=== PATIENT | male | born 1995 | race Caucasian/White ===

== ENCOUNTER 2018-03-21 18:46 | Emergency (ER) | payer OTHER ==
[~2018-03-21] VITALS: Ht 177.8 cm; Wt 70.8 kg
[~2018-03-21 18:46] MED LIST: Amoxil400 MG/5 M PO; CEPH500 PO; CRUTCH4 UD; CYCL10 PO; IBUP600 PO; IBUP800 PO; Keflex500 MG PO; MAGIC MOUTHWASH; METPRE4DP PO; Naprosyn500 MG PO; OXYACE5T PO; Veetids 500500 MG PO
[2018-03-21] MEDS ORDERED: Desyrel50 MG PO (20:23)
== END 2018-03-21 20:30 | disposition home or self-care (01) ==
LOC: ER 18:46
DX: F41.9 Anxiety disorder, unspecified (principal); G47.00 Insomnia, unspecified; F43.9 Reaction to severe stress, unspecified; F17.210 Nicotine dependence, cigarettes, uncomplicated
CPT/HCPCS: 99283

== ENCOUNTER 2019-02-18 15:35 | Emergency (ER) | payer OTHER ==
[~2019-02-18] VITALS: Ht 175.3 cm; Wt 65.8 kg
[~2019-02-18 15:35] MED LIST changes: +Desyrel50 MG PO; +HYDHCL25 PO; +TRIA15CR3 TOP
[2019-02-18] MEDS ORDERED: Vistaril25 MG PO (18:16)
== END 2019-02-18 19:22 | disposition home or self-care (01) ==
LOC: ER 15:35
DX: F41.0 Panic disorder [episodic paroxysmal anxiety] (principal); F17.210 Nicotine dependence, cigarettes, uncomplicated
CPT/HCPCS: 36415; 84484; 93005; 93010; 96374; 99285-25; J2060

== ENCOUNTER 2019-05-09 15:19 | Emergency (ER) | payer OTHER ==
[~2019-05-09] VITALS: Ht 177.8 cm; Wt 65.8 kg
[~2019-05-09 15:19] MED LIST changes: +Vistaril25 MG PO
== END 2019-05-09 17:30 | disposition home or self-care (01) ==
LOC: ER 15:19
DX: M94.0 Chondrocostal junction syndrome [Tietze] (principal); F17.210 Nicotine dependence, cigarettes, uncomplicated
CPT/HCPCS: 71046; 99283-25

== ENCOUNTER 2019-05-12 22:06 | Emergency (ER) | payer OTHER ==
[~2019-05-12] VITALS: Ht 177.8 cm; Wt 68.0 kg
[2019-05-12] MEDS ORDERED: IBUP600 PO (22:30)
== END 2019-05-12 22:46 | disposition home or self-care (01) ==
LOC: ER 22:06
DX: M94.0 Chondrocostal junction syndrome [Tietze] (principal); F17.210 Nicotine dependence, cigarettes, uncomplicated
CPT/HCPCS: 96372; 99283-25; J1885

== ENCOUNTER 2019-05-13 16:30 | Emergency (ER) | payer OTHER ==
[~2019-05-13] VITALS: Ht 177.8 cm; Wt 68.0 kg
== END 2019-05-13 16:56 | disposition home or self-care (01) ==
LOC: ER 16:30
DX: S29.012A Strain of muscle and tendon of back wall of thorax, initial encounter (principal); F17.210 Nicotine dependence, cigarettes, uncomplicated; Z79.899 Other long term (current) drug therapy; X50.9XXA Other and unspecified overexertion or strenuous movements or postures, initial encounter
CPT/HCPCS: 99281

== ENCOUNTER 2019-08-17 12:10 | Emergency (ER) | payer SELFPAY ==
[~2019-08-17] VITALS: Ht 177.8 cm; Wt 68.0 kg
[2019-08-17] MEDS ORDERED: PENVK500 PO (12:48)
== END 2019-08-17 13:09 | disposition home or self-care (01) ==
LOC: ER 12:10
DX: J02.0 Streptococcal pharyngitis (principal); Z87.891 Personal history of nicotine dependence
CPT/HCPCS: 87430; 99282; J1100

== ENCOUNTER 2019-11-02 10:22 | Emergency (ER) | payer SELFPAY ==
[~2019-11-02] VITALS: Ht 180.3 cm; Wt 72.6 kg
[~2019-11-02 10:22] MED LIST changes: +PENVK500 PO
== END 2019-11-02 10:51 | disposition home or self-care (01) ==
LOC: ER 10:22
DX: L23.7 Allergic contact dermatitis due to plants, except food (principal); Z87.891 Personal history of nicotine dependence
CPT/HCPCS: 96372; 99282; J1100

== ENCOUNTER 2021-02-06 04:20 | Observation (INO) | payer OTHER ==
[~2021-02-06] VITALS: Ht 180.3 cm; Wt 70.3 kg
[2021-02-06 05:13] LABS: BASOPHILS ABSOLUTE AUTO 0.06 K/mm3 (0.00-0.23); BASOPHILS PERCENT AUTO 1 % (0-2); EOSINOPHILS ABSOLUTE AUTO 0.05 K/mm3 (0.00-0.68); EOSINOPHILS PERCENT AUTO 1 % (0-6); IMMATURE GRAN ABSOLUTE AUTO 0.01 K/mm3 (0.00-0.10); IMMATURE GRAN PERCENT AUTO 0 % (0-1); LYMPHOCYTES ABSOLUTE AUTO 1.74 K/mm3 (0.84-5.20); LYMPHOCYTES PERCENT AUTO 31 % (21-46); MONOCYTES ABSOLUTE AUTO 0.32 K/mm3 (0.16-1.47); MONOCYTES PERCENT AUTO 6 % (4-13); Mean Corpuscular HGB 29.1 pg (26.0-34.0); Mean Corpuscular HGB Conc 34.1 g/dL (31.5-36.5); Mean Corpuscular Volume 85 fL (80-100); Mean Platelet Volume 8.7 fL (9.1-12.4); NEUTROPHILS ABSOLUTE AUTO 3.36 K/mm3 (1.96-9.15); NEUTROPHILS PERCENT AUTO 61 % (41-73); Platelet Count 388 K/mm3 (150-400); RDW Coefficient Variation 12.4 % (11.7-14.2); RDW Standard Deviation 38.4 fL (35.1-46.3); Red Blood Cell Count 5.16 M/mm3 (4.30-5.90); White Blood Cell Count 5.54 K/mm3 (4.00-11.30)
[2021-02-06 05:33] LABS: Alanine Aminotransfer (ALT/SGP 23 U/L (12-78); Albumin, Blood 4.7 g/dL (3.4-5.0); Albumin/Globulin Ratio 1.1 (0.8-1.8); Alk Phos 99 U/L (50-136); Anion Gap 6 mmol/L (6-16); Aspartate Aminotrans (AST/SGOT 16 U/L (12-37); Bilirubin, Total 0.3 mg/dL (0.1-1.0); Blood Urea Nitrogen 4 mg/dL (8-24); Bun/Creatinine Ratio 5.8 (12.0-20.0); CO2, Blood 27 mmol/L (21-32); Calcium, Blood 8.6 mg/dL (8.5-10.1); Chloride, Blood 109 mmol/L (98-108); Creatinine, Blood 0.68 mg/dL (0.60-1.20); Ethanol (Alcohol), Blood, Med 238 mg/dL; Globulin, Blood 4.1 g/dL (2.2-4.0); Glomerular Filtration Rate >60 (60-); Glucose, Blood 102 mg/dL (70-99); Potassium, Blood 3.9 mmol/L (3.5-5.5); Salicylate <1.7 mg/dL (2.8-20.0); Sodium, Blood 142 mmol/L (136-145); Total Protein, Blood 8.8 g/dL (6.4-8.2)
[2021-02-06 05:35] LABS: Acetaminophen, Random <2.0 ug/mL (10.0-30.0)
== END 2021-02-06 10:33 | disposition home or self-care (01) ==
LOC: ER 04:20 → EOR 04:21
PROVIDERS: ADMIT Student in an Organized Health Care Education/Training Program
DX: F10.129 Alcohol abuse with intoxication, unspecified (principal); Z87.891 Personal history of nicotine dependence
CPT/HCPCS: 80053; 85025; 99285; G0378; G0480

== ENCOUNTER 2022-02-16 06:09 | Emergency (ER) | payer OTHER ==
[~2022-02-16] VITALS: Ht 177.8 cm; Wt 71.7 kg
== END 2022-02-16 07:16 | disposition home or self-care (01) ==
LOC: ER 06:09
DX: L23.7 Allergic contact dermatitis due to plants, except food (principal); F17.210 Nicotine dependence, cigarettes, uncomplicated
CPT/HCPCS: J3301

== ENCOUNTER 2022-08-27 14:06 | Emergency (ER) | payer OTHER ==
[~2022-08-27] VITALS: Ht 177.8 cm; Wt 68.0 kg
== END 2022-08-27 16:00 | disposition home or self-care (01) ==
LOC: ER 14:06
DX: R10.30 Lower abdominal pain, unspecified (principal); L73.9 Follicular disorder, unspecified; F17.200 Nicotine dependence, unspecified, uncomplicated
CPT/HCPCS: 76857

== ENCOUNTER 2022-11-24 19:09 | Emergency (ER) | payer OTHER ==
[~2022-11-24] VITALS: Ht 177.8 cm; Wt 69.8 kg
[2022-11-24 19:33] VITALS: BP 134/83
[2022-11-24] MEDS ORDERED: PRED20 PO (20:01)
[2022-11-25] MEDS ORDERED: PRED20 PO (17:12)
== END 2022-11-24 20:12 | disposition home or self-care (01) ==
LOC: ER 19:09
DX: L23.7 Allergic contact dermatitis due to plants, except food (principal); F17.200 Nicotine dependence, unspecified, uncomplicated
CPT/HCPCS: 96372; 99282-25; J3301

== ENCOUNTER 2023-01-09 07:30 | Emergency (ER) | payer OTHER ==
[~2023-01-09] VITALS: Ht 177.8 cm; Wt 81.7 kg
[~2023-01-09 07:30] MED LIST changes: +PRED20 PO
[2023-01-09 08:30] LABS: BASOPHILS ABSOLUTE AUTO 0.05 K/mm3 (0.00-0.23); BASOPHILS PERCENT AUTO 1 % (0-2); EOSINOPHILS ABSOLUTE AUTO 0.02 K/mm3 (0.00-0.68); EOSINOPHILS PERCENT AUTO 0 % (0-6); Hematocrit 46.6 % (37.0-53.0); Hemoglobin 15.8 g/dL (13.5-17.5); IMMATURE GRAN ABSOLUTE AUTO 0.03 K/mm3 (0.00-0.10); IMMATURE GRAN PERCENT AUTO 0 % (0-1); LYMPHOCYTES ABSOLUTE AUTO 1.89 K/mm3 (0.84-5.20); LYMPHOCYTES PERCENT AUTO 23 % (21-46); MONOCYTES ABSOLUTE AUTO 0.52 K/mm3 (0.16-1.47); MONOCYTES PERCENT AUTO 6 % (4-13); Mean Corpuscular HGB 28.9 pg (26.0-34.0); Mean Corpuscular HGB Conc 33.9 g/dL (31.5-36.5); Mean Corpuscular Volume 85 fL (80-100); Mean Platelet Volume 8.6 fL (9.1-12.4); NEUTROPHILS ABSOLUTE AUTO 5.75 K/mm3 (1.96-9.15); NEUTROPHILS PERCENT AUTO 70 % (41-73); Platelet Count 405 K/mm3 (150-400); RDW Coefficient Variation 12.7 % (11.7-14.2); RDW Standard Deviation 38.9 fL (35.1-46.3); Red Blood Cell Count 5.46 M/mm3 (4.30-5.90); White Blood Cell Count 8.26 K/mm3 (4.00-11.30)
[2023-01-09 08:53] LABS: Albumin, Blood 4.3 g/dL (3.4-5.0); Albumin/Globulin Ratio 1.1 (0.8-1.8); Bilirubin, Total 0.2 mg/dL (0.1-1.0); Bun/Creatinine Ratio 9.8 (12.0-20.0); Calcium, Blood 8.5 mg/dL (8.5-10.1); Creatinine, Blood 0.71 mg/dL (0.60-1.20); Globulin, Blood 3.9 g/dL (2.2-4.0); Potassium, Blood 3.4 mmol/L (3.5-5.5); Total Protein, Blood 8.2 g/dL (6.4-8.2)
[2023-01-09 10:30] VITALS: BP 111/67
== END 2023-01-09 11:02 | disposition home or self-care (01) ==
LOC: ER 07:30
PROVIDERS: Emergency Medicine
DX: G31.2 Degeneration of nervous system due to alcohol (principal); F10.129 Alcohol abuse with intoxication, unspecified; G40.909 Epilepsy, unspecified, not intractable, without status epilepticus; F17.200 Nicotine dependence, unspecified, uncomplicated; Z79.52 Long term (current) use of systemic steroids; Y90.8 Blood alcohol level of 240 mg/100 ml or more
CPT/HCPCS: 80053; 82947; 85025; 93005; 93010; G0480; J2310

== ENCOUNTER 2024-03-02 17:42 | Emergency (ER) | payer OTHER ==
[~2024-03-02] VITALS: Ht 177.8 cm; Wt 68.0 kg
[2024-03-02 17:52] VITALS: BP 13/114
== END 2024-03-02 18:37 | disposition home or self-care (01) ==
LOC: ER 17:42
DX: K04.7 Periapical abscess without sinus (principal); F17.200 Nicotine dependence, unspecified, uncomplicated; Z79.52 Long term (current) use of systemic steroids
CPT/HCPCS: 99282

== ENCOUNTER 2024-03-05 16:02 | Emergency (ER) | payer OTHER ==
[~2024-03-05] VITALS: Ht 177.8 cm; Wt 69.0 kg
[2024-03-05] MEDS ORDERED: AMOX-CLAV 500-1 EAC5 PO (16:12)
[2024-03-05 16:50] LABS: BASOPHILS ABSOLUTE AUTO 0.05 K/mm3 (0.00-0.23); BASOPHILS PERCENT AUTO 1 % (0-2); EOSINOPHILS ABSOLUTE AUTO 0.12 K/mm3 (0.00-0.68); EOSINOPHILS PERCENT AUTO 1 % (0-6); Hematocrit 45.6 % (37.0-53.0); Hemoglobin 15.8 g/dL (13.5-17.5); IMMATURE GRAN ABSOLUTE AUTO 0.02 K/mm3 (0.00-0.10); IMMATURE GRAN PERCENT AUTO 0 % (0-1); LYMPHOCYTES ABSOLUTE AUTO 2.26 K/mm3 (0.84-5.20); LYMPHOCYTES PERCENT AUTO 24 % (21-46); MONOCYTES PERCENT AUTO 13 % (4-13); Mean Corpuscular HGB 29.3 pg (26.0-34.0); Mean Corpuscular HGB Conc 34.6 g/dL (31.5-36.5); Mean Corpuscular Volume 84 fL (80-100); NEUTROPHILS ABSOLUTE AUTO 5.92 K/mm3 (1.96-9.15); NEUTROPHILS PERCENT AUTO 62 % (41-73); Platelet Count 423 K/mm3 (150-400); RDW Coefficient Variation 12.3 % (11.7-14.2); RDW Standard Deviation 37.6 fL (35.1-46.3); White Blood Cell Count 9.57 K/mm3 (4.00-11.30)
[2024-03-05 17:19] LABS: Albumin, Blood 3.9 g/dL (3.4-5.0); Albumin/Globulin Ratio 0.8 (0.8-1.8); Bilirubin, Total 0.4 mg/dL (0.1-1.0); Calcium, Blood 9.4 mg/dL (8.5-10.1); Creatinine, Blood 0.82 mg/dL (0.60-1.20); Potassium, Blood 4.1 mmol/L (3.5-5.5); Total Protein, Blood 8.9 g/dL (6.4-8.2)
[2024-03-05] MEDS ORDERED: Ketorolac Tromethamine 30mg Vial IV ONE (20:10)
[2024-03-05] MEDS ORDERED: Ampicillin Sod/Sulbactam Sod 3 GM in NS 100 ML IV ONE (20:20)
[2024-03-05] MEDS ORDERED: Dexamethasone Sod Phos 10 MG/ML 1ML VIAL IV ONE (20:20)
[2024-03-05] MEDS ORDERED: METPRE4DP PO (20:22)
[2024-03-05] MEDS ORDERED: RX Prepack 6 Tabs Oxycodone 5mg UD ONE (20:25)
[2024-03-05] MEDS ORDERED: Cleocin HCl150 MG PO (21:03)
[2024-03-05] MEDS ORDERED: DOXY100 PO (21:03)
[2024-03-05 21:13] VITALS: BP 127/99
== END 2024-03-05 21:14 | disposition home or self-care (01) ==
LOC: ER 16:02
PROVIDERS: Student in an Organized Health Care Education/Training Program
DX: K04.7 Periapical abscess without sinus (principal); F17.200 Nicotine dependence, unspecified, uncomplicated; Z79.899 Other long term (current) drug therapy
CPT/HCPCS: 41800; 70487; 80053; 85025; 96374-59; 96375-59; 99283-25; A9270; J0295; J1100; J1885; Q9967

== ENCOUNTER → 2024-11-23 | Outpatient (CLI) | payer OTHER ==
[~2024-11-23] MED LIST changes: +AMOX-CLAV 500-1 EAC5 PO; +Cleocin HCl150 MG PO; +DOXY100 PO
[2024-11-26 18:11] LABS: HSV 1 SUBTYPE BY PCR Not Detected; HSV 2 SUBTYPE BY PCR Detected; HSV SUBTYPE SOURCE Not Provided
[2024-11-26 18:46] LABS: APTIMA MEDIA TYPE Urine; C. TRACHOMATIS BY TMA Negative (Negative); N. GONORRHOEAE BY TMA Negative (Negative); SPECIMEN SOURCE Urine
== END ==
LOC: LAB 11:25 → LAB SHORT 11:25
PROVIDERS: Student in an Organized Health Care Education/Training Program
DX: Z11.3 Encounter for screening for infections with a predominantly sexual mode of transmission (principal); R19.09 Other intra-abdominal and pelvic swelling, mass and lump; R23.8 Other skin changes
CPT/HCPCS: 87070; 87075; 87205; 87491; 87529; 87591

== ENCOUNTER 2024-12-05 09:07 | Emergency (ER) | payer BC ==
[~2024-12-05] VITALS: Ht 177.8 cm; Wt 66.7 kg
[2024-12-05 09:38] VITALS: BP 116/84
[2024-12-05] MEDS ORDERED: Dexamethasone Sod Phos 10 MG/ML 1ML VIAL PO ONE (09:45)
[2024-12-05] MEDS ORDERED: CLOBETASOL EMOL15 G1 TOP (09:57)
== END 2024-12-05 09:59 | disposition home or self-care (01) ==
LOC: ER 09:07
DX: L23.7 Allergic contact dermatitis due to plants, except food (principal); F17.200 Nicotine dependence, unspecified, uncomplicated
CPT/HCPCS: J1100